=== PATIENT | female | born 1955 | race Caucasian/White ===

== ENCOUNTER 2018-05-01 12:29 | Inpatient (IN) ==
--- NOTE | 2018-05-01 13:54 | ED ---
HPI General Chief Complaint: Abdominal Pain Stated Complaint: Abd pain Time Seen by Provider: 05/01/18 13:39 History of Present Illness HPI narrative: The patient was seen and examined in the presence of the nurse. She complains of abdominal pain. Duration is 2 days. Severity is moderate. Location is diffuse in all 4 quadrants. She has nausea. She has been feeling constipated. No history of abdominal problems or surgeries. No alleviating factors. No exacerbating factors. Related Data Home Medications Medication Instructions Recorded Confirmed allopurinol 200 mg PO DAILY 05/01/18 05/01/18 clonazepam 1 mg PO BID 05/01/18 05/01/18 escitalopram oxalate 10 mg PO DAILY 05/01/18 05/01/18 hydrochlorothiazide 12.5 mg PO DAILY 05/01/18 05/01/18 hydrocodone bitartrate 05/01/18 hydroxychloroquine 200 mg PO DAILY 05/01/18 05/01/18 losartan 50 mg PO DAILY 05/01/18 05/01/18 warfarin 6 mg PO DAILY 05/01/18 05/01/18 Allergies Allergy/AdvReac Type Severity Reaction Status Date / Time penicillin G Allergy Severe Unverified 03/30/17 20:49 Sulfa (Sulfonamide Allergy Severe Unverified 03/30/17 20:49 Antibiotics) acebutolol AdvReac Severe UNABLE TO Unverified 03/30/17 20:49 FUNCTION/ WALK/ DIZZY atenolol AdvReac Severe UNABLE TO Unverified 03/30/17 20:49 FUNCTION/ WALK/ DIZZY betaxolol AdvReac Severe UNABLE TO Unverified 03/30/17 20:49 FUNCTION/ WALK/ DIZZY carvedilol AdvReac Severe UNABLE TO Unverified 03/30/17 20:49 FUNCTION/ WALK/ DIZZY labetalol AdvReac Severe UNABLE TO Unverified 03/30/17 20:49 FUNCTION/ WALK/ DIZZY metoprolol AdvReac Severe UNABLE TO Unverified 03/30/17 20:49 FUNCTION/ WALK/ DIZZY nebivolol AdvReac Severe UNABLE TO Unverified 03/30/17 20:49 FUNCTION/ WALK/ DIZZY pindolol AdvReac Severe UNABLE TO Unverified 03/30/17 20:49 FUNCTION/ WALK/ DIZZY propranolol AdvReac Severe UNABLE TO Unverified 03/30/17 20:49 FUNCTION/ WALK/ DIZZY sotalol AdvReac Severe UNABLE TO Unverified 03/30/17 20:49 FUNCTION/ WALK/ DIZZY timolol AdvReac Severe UNABLE TO Unverified 03/30/17 20:49 FUNCTION/ WALK/ DIZZY doxycycline AdvReac Mild N/V/D Unverified 03/30/17 20:49 minocycline AdvReac Mild N/V/D Unverified 03/30/17 20:49 tigecycline AdvReac Mild N/V/D Unverified 03/30/17 20:49 Review of Systems ROS: all other systems reviewed are negative PMFSH Medical History Medical History Depression (Acute) Gout (Acute) HTN (hypertension) with goal to be determined (Acute) Panic attack (Acute) Stroke (Acute) Social History Social History Smoking Status: Never smoker How Often Do You Have a Drink Containing Alcohol: Never Recent Travel in [facility] within the Last 8 Weeks: No Recent Out of Country Travel within the Last 8 Weeks: No Immunization History Tetanus Immunization: Unsure Hx Influenza Vaccine This Season: No Exam Narrative Exam Narrative: GENERAL: Well-nourished, well-developed patient with abdominal pain . SKIN: Focused skin assessment reveals no rash and nodules. Skin is Warm and dry. HEAD: Atraumatic. Normocephalic. EYES: Pupils equal and round. No scleral icterus. No injection or drainage. ENT: No nasal bleeding or discharge. Mucous membranes pink and moist. NECK: Trachea midline. No JVD. CARDIOVASCULAR: Regular rate and rhythm. No murmur appreciated. RESPIRATORY: No accessory muscle use. Clear to auscultation. Breath sounds equal bilaterally. GASTROINTESTINAL: Abdomen soft, diffuse tenderness in all 4 quadrants without rebound or guarding , nondistended. Hepatic and splenic margins not palpable. MUSCULOSKELETAL: No obvious deformities. No clubbing. No cyanosis. No edema. NEUROLOGICAL: Awake and alert. No obvious cranial nerve deficits. Motor grossly within normal limits. Normal speech. PSYCHIATRIC: Appropriate mood and affect; insight and judgment normal. Course Initial Documented Vital Signs Temperature 97.7 F 05/01/18 12:39 Pulse Rate 109 H 05/01/18 12:39 Respiratory Rate 12 05/01/18 12:39 Blood Pressure 136/73 05/01/18 12:39 Pulse Oximetry 93 L 05/01/18 12:39 Last Documented Vital Signs Temperature 97.7 F 05/01/18 12:39 Pulse Rate 111 H 05/01/18 18:25 Respiratory Rate 17 05/01/18 18:25 Blood Pressure 132/76 05/01/18 18:25 Pulse Oximetry 94 L 05/01/18 18:25 Medical Decision Making MDM Narrative Medical decision making narrative: IV placed and labs sent. CT ordered. I gave her Zofran dose. Patient has significant leukocytosis. Metabolic studies are reasonably normal. CT scan shows a very large pelvic mass. Is worrisome for an ovarian or uterine cancer. Patient is having a lot of pain and tachycardic and borderline hypoxic. I added a chest x-ray. I am going to give her some pain medicine. I have reviewed the case in detail with Dr. Burk who will admit and assist with workup. Medical Screen Exam Complete: Yes Emergency Medical Condition: Yes Differential Diagnosis Differential Diagnosis: Colitis, obstruction, ileus Medical Records Medical records reviewed: Yes I reviewed the patient's medical records. Lab Data Lab results reviewed: Yes I reviewed the patient's lab results. Result diagrams: 05/01/18 14:00 05/01/18 14:00 Lab Results 05/01/18 05/01/18 05/01/18 Range/Units 14:00 14:00 15:10 WBC 22.0 H (4.0-11.0) th/mm3 RBC 4.73 (4.00-5.30) mil/mm3 Hgb 13.0 (11.6-15.3) gm/dL Hct 38.9 (35.0-46.0) % MCV 82.3 (80.0-100.0) fL MCH 27.4 (27.0-34.0) pg MCHC 33.4 (32.0-36.0) % RDW 15.2 (11.6-17.2) % Plt Count 259 (150-450) th/mm3 MPV 8.0 (7.0-11.0) fL Prelim Diff (Auto) Slide review pending Neut % (Auto) 79.6 H (16.0-70.0) % Lymph % (Auto) 3.6 L (9.0-44.0) % [place] % (Auto) 16.6 H (0.0-8.0) % Eos % (Auto) 0.0 (0.0-4.0) % Baso % (Auto) 0.2 (0.0-2.0) % Neut # (Auto) 17.5 H (1.8-7.7) th/mm3 Lymph # (Auto) 0.8 L (1.0-4.8) th/mm3 [place] # (Auto) 3.6 H (0.0-0.9) th/mm3 Eos # (Auto) 0.0 (0.0-0.4) th/mm3 Baso # (Auto) 0.0 (0.0-0.2) th/mm3 WBC Differential Manual diff final Seg Neuts % (Manual) 62 (16-70) % Band Neuts % (Manual) 11 H (0-6) % Lymphocytes % (Manual) 5 L (9-44) % Monocytes % (Manual) 21 H (0-8) % Basophils % (Manual) 1 (0-2) % Abs Neuts (Manual) 16.1 H (1.8-7.7) th/mm3 Differential Comment . Platelet Estimate Normal (Normal) Platelet Morphology Normal (Normal) Sodium 136 (136-145) meq/L Potassium 3.9 (3.5-5.1) meq/L Chloride 101 (98-107) meq/L Carbon Dioxide 23.3 (21.0-32.0) meq/L Anion Gap 12 (5-15) meq/L BUN 12 (7-18) mg/dL Creatinine 1.18 H (0.50-1.00) mg/dL Estimated GFR 46 L (>89) mL/min Random Glucose 140 H (74-106) mg/dL Calcium 8.9 (8.5-10.1) mg/dL Total Bilirubin 1.4 H (0.2-1.0) mg/dL AST 12 L (15-37) U/L ALT 12 (10-53) U/L Alkaline Phosphatase 84 (45-117) U/L Total Protein 7.6 (6.4-8.2) g/dL Albumin 3.5 (3.4-5.0) g/dL Lipase 57 L (73-393) U/L Urine Color Yellow (Yellw/Straw) Urine Clarity Hazy H (Clear) Urine pH 5.0 (5.0-8.5) Ur Specific [place] 1.023 (1.002-1.035) Urine Protein Negative (Neg-Trace) mg/dL Urine Glucose (UA) Negative (Negative) mg/dL Urine Ketones Negative (Negative) mg/dL Urine Occult Blood Small H (Negative) Urine Nitrate Negative (Negative) Urine Bilirubin Negative (Negative) Urine Urobilinogen 2.0 H (Less than 2) mg/dL Ur Leukocyte Esterase Negative (Negative) Urine RBC 5 H (0-3) /hpf Urine WBC 2 (0-5) /hpf Ur Squamous Epith Cells 2 (0-5) /hpf Urine Mucus Few H (Occasional) /lpf Micro UA Comment Culture not ind Ur Microscopic Review Not Reportable Urine Culture Comments Culture not ind Imaging Data Attestation: I personally reviewed and interpreted this imaging study as follows : Radiologist's impression: Abdomen/Pelvis CT 05/01/18 13:48 CONCLUSION: 1. Large complex cystic and solid mass involving the pelvis. Chief concern is ovarian cancer. No appreciable pelvic adenopathy. 2. Cholelithiasis. 3. 1.6 cm hepatic cyst. This is simple in appearance. Discharge Plan Discharge Disposition Patient Disposition: 30 Still Patient Discharge Details Diagnosis: Abdominal pain, Abdominal or pelvic swelling, mass, or lump, right lower quadrant Physicians Team ED Provider: Tyrell Allred Primary Care Provider: Samson Huitron Rxs /Orders / Referrals /Forms Prescriptions: No Action losartan 50 mg Tablet 50 mg PO DAILY RF: 0 clonazepam 1 mg Tablet 1 mg PO BID RF: 0 allopurinol 100 mg Tablet 200 mg PO DAILY RF: 0 warfarin 6 mg Tablet 6 mg PO DAILY RF: 0 hydrochlorothiazide 12.5 mg Capsule 12.5 mg PO DAILY RF: 0 hydroxychloroquine 200 mg Tablet 200 mg PO DAILY RF: 0 escitalopram oxalate 10 mg Tablet 10 mg PO DAILY RF: 0 hydrocodone bitartrate RF: 0 Discharge Interventions Interventions: Vital Signs Last Done: 05/01/18 18:25 Status ED Status: Admitted Patient
[2018-05-01 14:19] LABS: Baso % (Auto) 0.2 % (0.0-2.0); Hematocrit 38.9 % (35.0-46.0); Lymph # (Auto) 0.8 th/mm3 (1.0-4.8); Lymph % (Auto) 3.6 % (9.0-44.0); Mean Corpuscular HGB Conc 33.4 % (32.0-36.0); Mean Corpuscular Hemoglobin 27.4 pg (27.0-34.0); Mean Corpuscular Volume 82.3 fL (80.0-100.0); Mono # (Auto) 3.6 th/mm3 (0.0-0.9); Mono % (Auto) 16.6 % (0.0-8.0); Neut # (Auto) 17.5 th/mm3 (1.8-7.7); Neut % (Auto) 79.6 % (16.0-70.0); Platelet Count 259 th/mm3 (150-450); Red Blood Count 4.73 mil/mm3 (4.00-5.30); Red Cell Distribution Width 15.2 % (11.6-17.2)
[2018-05-01 14:48] LABS: Alanine Aminotransferase 12 U/L (10-53); Albumin 3.5 g/dL (3.4-5.0); Anion Gap 12 meq/L (5-15); Aspartate Aminotransferase 12 U/L (15-37); Blood Urea Nitrogen 12 mg/dL (7-18); Calcium 8.9 mg/dL (8.5-10.1); Carbon Dioxide 23.3 meq/L (21.0-32.0); Chloride 101 meq/L (98-107); Glomerular Filtration Rate 46 mL/min (>89); Glucose,Random 140 mg/dL (74-106); Lipase 57 U/L (73-393); Potassium 3.9 meq/L (3.5-5.1); Sodium 136 meq/L (136-145)
[2018-05-01 14:50] LABS: Alkaline Phosphatase 84 U/L (45-117); Total Protein 7.6 g/dL (6.4-8.2)
[2018-05-01 15:32] LABS: Lymphocytes 5 % (9-44); Monocytes 21 % (0-8)
[2018-05-01 15:34] LABS: Platelet Estimate Normal (Normal); Platelet Morphology Normal (Normal)
[2018-05-01 15:48] LABS: Bilirubin,Urine Negative (Negative); Clarity,Urine Hazy (Clear); Color,Urine Yellow (Yellw/Straw); Glucose,Urine (UA) Negative (Negative); Leukocyte Esterase,Urine Negative (Negative); Mucus,Urine Few /lpf (Occasional); Nitrite,Urine Negative (Negative); Specific Gravity,Urine 1.023 (1.002-1.035); Squamous Epithelial Cell,Urine 2 /hpf (0-5)
[2018-05-01] MEDS ORDERED: Morphine Inj 4 MG/ML Vial IV.PUSH ONE (18:24)
[2018-05-01] MEDS ORDERED: Bisacodyl 10 MG Supp RECTAL PRN (19:13)
[2018-05-01] MEDS ORDERED: Acetaminophen 325 MG Tablet PO PRN (19:13)
[2018-05-01] MEDS ORDERED: Temazepam 15 MG Capsule PO PRN (19:13)
[2018-05-01] MEDS ORDERED: Naloxone Inj 0.4 MG/ML Vial IV.PUSH PRN (19:13)
[2018-05-01] MEDS ORDERED: Enoxaparin Inj 40 MG/0.4 ML Syringe SQ SCH (19:15)
[2018-05-01] MEDS: Morphine Inj 4 MG/ML Vial IV.PUSH PRN (21:56)
[2018-05-01] MEDS: Senna/Docusate Sodium 8.6/50 MG Tablet PO SCH (22:19)
[2018-05-02] MEDS: Morphine Inj 4 MG/ML Vial IV.PUSH PRN ×2 (04:40→08:09)
[2018-05-02] MEDS: Senna/Docusate Sodium 8.6/50 MG Tablet PO SCH ×2 (08:48→20:18)
[2018-05-02] MEDS ORDERED: Chlorhexidine Gluconate 2% 1 Pack (2 Cloths) TOPICAL ONE (09:15)
[2018-05-02] MEDS ORDERED: Metoprolol Tartrate 25 MG Tablet PO ONE (09:15)
[2018-05-02] MEDS ORDERED: Sodium Chlor 0.9% Inj 500 ML IV.SIG SCH (10:00)
[2018-05-02 12:27] LABS: Baso # (Auto) 0.1 th/mm3 (0.0-0.2); Baso % (Auto) 0.2 % (0.0-2.0); Hematocrit 36.7 % (35.0-46.0); Hemoglobin 12.2 gm/dL (11.6-15.3); Lymph # (Auto) 1.2 th/mm3 (1.0-4.8); Lymph % (Auto) 4.5 % (9.0-44.0); Mean Corpuscular HGB Conc 33.3 % (32.0-36.0); Mean Corpuscular Hemoglobin 27.5 pg (27.0-34.0); Mean Corpuscular Volume 82.6 fL (80.0-100.0); Mono # (Auto) 4.5 th/mm3 (0.0-0.9); Mono % (Auto) 16.4 % (0.0-8.0); Neut # (Auto) 21.6 th/mm3 (1.8-7.7); Neut % (Auto) 78.9 % (16.0-70.0); Platelet Count 293 th/mm3 (150-450); Red Blood Count 4.44 mil/mm3 (4.00-5.30); Red Cell Distribution Width 15.7 % (11.6-17.2); White Blood Count 27.4 th/mm3 (4.0-11.0)
[2018-05-02 12:31] LABS: INR 3.5 Ratio; Prothrombin Time 35.5 sec (9.8-11.6)
[2018-05-02 12:54] LABS: Albumin 3.5 g/dL (3.4-5.0); Anion Gap 11 meq/L (5-15); Aspartate Aminotransferase 13 U/L (15-37); Blood Urea Nitrogen 26 mg/dL (7-18); Calcium 9.3 mg/dL (8.5-10.1); Carbon Dioxide 22.8 meq/L (21.0-32.0); Chloride 101 meq/L (98-107); Glomerular Filtration Rate 28 mL/min (>89); Glucose,Random 140 mg/dL (74-106); Potassium 4.1 meq/L (3.5-5.1); Sodium 135 meq/L (136-145)
[2018-05-02 12:56] LABS: Alanine Aminotransferase 14 U/L (10-53); Alkaline Phosphatase 88 U/L (45-117)
[2018-05-02 13:25] LABS: Lymphocytes 3 % (9-44); Monocytes 15 % (0-8)
[2018-05-02 13:26] LABS: Platelet Estimate Normal (Normal); Platelet Morphology Normal (Normal)
[2018-05-02] MEDS: Sod Chloride 0.9% Inj 1,000 ML IV.CONT SCH (15:46)
--- NOTE | 2018-05-02 19:21 | ECG ---
Date Performed: 05/02/2018 Time Performed: 09:20:24 PTAGE: 62 years EKG: Sinus rhythm WITH OCCASIONAL SUPRAVENTRICULAR PREMATURE COMPLEXES LOW QRS VOLTAGE IN PRECORDIAL LEADS POSSIBLE RI GHT VENTRICULAR CONDUCTION DELAY POSSIBLE ANTERIOR MYOCARDIAL INFARCTION , OF INDETERMINATE AGE ABNOR MAL ECG PREVIOUS TRACING : 01/09/2009 00.49 Since the previous tracing, no significant change noted DOCTOR: Addie Headley Interpretating Date/Time 05/02/2018 19:19:36
[2018-05-02] MEDS: clonazePAM 1 MG Tablet PO SCH (20:18)
[2018-05-03] MEDS: Sod Chloride 0.9% Inj 1,000 ML IV.CONT SCH ×3 (02:19→15:50)
[2018-05-03] MEDS: Morphine Inj 4 MG/ML Vial IV.PUSH PRN (05:22)
[2018-05-03 05:51] LABS: Baso % (Auto) 0.2 % (0.0-2.0); Eos % (Auto) 0.1 % (0.0-4.0); Hematocrit 32.1 % (35.0-46.0); Hemoglobin 10.7 gm/dL (11.6-15.3); Lymph # (Auto) 0.8 th/mm3 (1.0-4.8); Lymph % (Auto) 4.8 % (9.0-44.0); Mean Corpuscular HGB Conc 33.3 % (32.0-36.0); Mean Corpuscular Hemoglobin 27.5 pg (27.0-34.0); Mean Corpuscular Volume 82.7 fL (80.0-100.0); Mono # (Auto) 2.7 th/mm3 (0.0-0.9); Mono % (Auto) 15.4 % (0.0-8.0); Neut % (Auto) 79.5 % (16.0-70.0); Platelet Count 244 th/mm3 (150-450); Red Blood Count 3.89 mil/mm3 (4.00-5.30); Red Cell Distribution Width 15.7 % (11.6-17.2); White Blood Count 17.6 th/mm3 (4.0-11.0)
[2018-05-03 05:52] LABS: INR 3.3 Ratio; Prothrombin Time 32.9 sec (9.8-11.6)
[2018-05-03 06:19] LABS: Alanine Aminotransferase 9 U/L (10-53); Albumin 2.9 g/dL (3.4-5.0); Alkaline Phosphatase 86 U/L (45-117); Anion Gap 9 meq/L (5-15); Aspartate Aminotransferase 11 U/L (15-37); Blood Urea Nitrogen 30 mg/dL (7-18); Calcium 8.9 mg/dL (8.5-10.1); Carbon Dioxide 23.8 meq/L (21.0-32.0); Carcinoembryonic Antigen 4.4 ng/mL (0.2-5.0); Chloride 103 meq/L (98-107); Glomerular Filtration Rate 43 mL/min (>89); Glucose,Random 137 mg/dL (74-106); Potassium 3.8 meq/L (3.5-5.1); Sodium 136 meq/L (136-145); Total Protein 6.4 g/dL (6.4-8.2)
[2018-05-03 06:52] LABS: Cancer Antigen 125 69.1 U/mL (0.0-30.2); Cancer Antigen 19-9 34.6 U/mL (0.0-35.0)
[2018-05-03 08:36] LABS: Lymphocytes 2 % (9-44); Monocytes 13 % (0-8); Myelocytes 1 % (0-0)
[2018-05-03 08:37] LABS: Platelet Estimate Normal (Normal); Platelet Morphology Normal (Normal)
[2018-05-03] MEDS: Senna/Docusate Sodium 8.6/50 MG Tablet PO SCH ×2 (09:12→20:18)
[2018-05-03] MEDS: Escitalopram 10 MG Tablet PO SCH (09:13)
[2018-05-03] MEDS: Allopurinol 100 MG Tablet PO SCH (09:13)
[2018-05-03] MEDS: Hydroxychloroquine 200 MG Tablet PO SCH (09:13)
[2018-05-03] MEDS: clonazePAM 1 MG Tablet PO SCH (20:18)
[2018-05-04] MEDS: Sod Chloride 0.9% Inj 1,000 ML IV.CONT SCH ×2 (01:31→15:52)
[2018-05-04 06:50] LABS: Baso % (Auto) 0.2 % (0.0-2.0); Eos # (Auto) 0.2 th/mm3 (0.0-0.4); Eos % (Auto) 1.2 % (0.0-4.0); Hematocrit 30.6 % (35.0-46.0); Hemoglobin 10.3 gm/dL (11.6-15.3); Lymph % (Auto) 6.1 % (9.0-44.0); Mean Corpuscular HGB Conc 33.7 % (32.0-36.0); Mean Corpuscular Hemoglobin 27.5 pg (27.0-34.0); Mean Corpuscular Volume 81.8 fL (80.0-100.0); Mean Platelet Volume 8.5 fL (7.0-11.0); Mono # (Auto) 2.6 th/mm3 (0.0-0.9); Mono % (Auto) 15.3 % (0.0-8.0); Neut % (Auto) 77.2 % (16.0-70.0); Platelet Count 295 th/mm3 (150-450); Red Blood Count 3.74 mil/mm3 (4.00-5.30); Red Cell Distribution Width 15.8 % (11.6-17.2); White Blood Count 16.9 th/mm3 (4.0-11.0)
[2018-05-04 06:52] LABS: INR 2.4 Ratio; Prothrombin Time 24.3 sec (9.8-11.6)
[2018-05-04 07:04] LABS: Calcium 9.6 mg/dL (8.5-10.1); Carbon Dioxide 25.6 meq/L (21.0-32.0); Potassium 3.9 meq/L (3.5-5.1)
[2018-05-04] MEDS: Senna/Docusate Sodium 8.6/50 MG Tablet PO SCH ×4 (07:41→20:36)
[2018-05-04] MEDS: Hydroxychloroquine 200 MG Tablet PO SCH ×2 (07:41→11:51)
[2018-05-04] MEDS: Escitalopram 10 MG Tablet PO SCH ×2 (07:41→11:51)
[2018-05-04] MEDS: Allopurinol 100 MG Tablet PO SCH ×2 (07:42→11:52)
[2018-05-04 08:07] LABS: Eosinophils 1 % (0-4); Lymphocytes 4 % (9-44); Metamyelocytes 1 % (0-1); Monocytes 7 % (0-8); Myelocytes 2 % (0-0); Platelet Estimate Normal (Normal); Platelet Morphology Normal (Normal)
[2018-05-04] MEDS: clonazePAM 1 MG Tablet PO SCH (20:33)
[2018-05-05 04:54] LABS: INR 1.6 Ratio; Prothrombin Time 15.9 sec (9.8-11.6)
[2018-05-05 05:03] LABS: Baso # (Auto) 0.1 th/mm3 (0.0-0.2); Baso % (Auto) 0.3 % (0.0-2.0); Eos # (Auto) 0.2 th/mm3 (0.0-0.4); Eos % (Auto) 1.5 % (0.0-4.0); Hematocrit 30.5 % (35.0-46.0); Lymph # (Auto) 1.1 th/mm3 (1.0-4.8); Lymph % (Auto) 6.3 % (9.0-44.0); Mean Corpuscular HGB Conc 32.7 % (32.0-36.0); Mean Corpuscular Hemoglobin 27.1 pg (27.0-34.0); Mean Corpuscular Volume 82.6 fL (80.0-100.0); Mean Platelet Volume 7.9 fL (7.0-11.0); Mono # (Auto) 2.6 th/mm3 (0.0-0.9); Mono % (Auto) 15.6 % (0.0-8.0); Neut # (Auto) 12.7 th/mm3 (1.8-7.7); Neut % (Auto) 76.3 % (16.0-70.0); Platelet Count 353 th/mm3 (150-450); Red Blood Count 3.69 mil/mm3 (4.00-5.30); Red Cell Distribution Width 15.1 % (11.6-17.2); White Blood Count 16.7 th/mm3 (4.0-11.0)
[2018-05-05 05:22] LABS: Calcium 9.3 mg/dL (8.5-10.1); Carbon Dioxide 28.1 meq/L (21.0-32.0); Potassium 3.9 meq/L (3.5-5.1)
[2018-05-05 07:58] LABS: Eosinophils 1 % (0-4); Lymphocytes 7 % (9-44); Metamyelocytes 3 % (0-1); Monocytes 9 % (0-8); Myelocytes 1 % (0-0); Platelet Estimate Normal (Normal); Platelet Morphology Normal (Normal)
[2018-05-05] MEDS: Hydroxychloroquine 200 MG Tablet PO SCH (08:22)
[2018-05-05] MEDS: Escitalopram 10 MG Tablet PO SCH (08:22)
[2018-05-05] MEDS: Allopurinol 100 MG Tablet PO SCH (08:22)
[2018-05-05] MEDS: Senna/Docusate Sodium 8.6/50 MG Tablet PO SCH ×2 (08:24→22:46)
[2018-05-05] MEDS: Levofloxacin 500 mg Premix Inj 500 MG/100 ML PIGGYBACK IV.SIG SCH (14:54)
[2018-05-05] MEDS: clonazePAM 1 MG Tablet PO SCH (22:46)
[2018-05-06 06:58] LABS: INR 1.6 Ratio; Prothrombin Time 16.3 sec (9.8-11.6)
[2018-05-06 07:03] LABS: Baso % (Auto) 0.3 % (0.0-2.0); Eos # (Auto) 0.4 th/mm3 (0.0-0.4); Eos % (Auto) 2.1 % (0.0-4.0); Hematocrit 27.3 % (35.0-46.0); Hemoglobin 9.4 gm/dL (11.6-15.3); Lymph # (Auto) 1.1 th/mm3 (1.0-4.8); Lymph % (Auto) 6.2 % (9.0-44.0); Mean Corpuscular HGB Conc 34.3 % (32.0-36.0); Mean Corpuscular Hemoglobin 27.7 pg (27.0-34.0); Mean Corpuscular Volume 80.9 fL (80.0-100.0); Mean Platelet Volume 7.8 fL (7.0-11.0); Mono # (Auto) 2.4 th/mm3 (0.0-0.9); Mono % (Auto) 14.2 % (0.0-8.0); Neut # (Auto) 13.1 th/mm3 (1.8-7.7); Neut % (Auto) 77.2 % (16.0-70.0); Platelet Count 354 th/mm3 (150-450); Red Blood Count 3.37 mil/mm3 (4.00-5.30); Red Cell Distribution Width 15.3 % (11.6-17.2)
[2018-05-06 07:22] LABS: Calcium 8.5 mg/dL (8.5-10.1); Carbon Dioxide 25.9 meq/L (21.0-32.0); Potassium 3.8 meq/L (3.5-5.1)
[2018-05-06] MEDS: Hydroxychloroquine 200 MG Tablet PO SCH (08:02)
[2018-05-06] MEDS: Senna/Docusate Sodium 8.6/50 MG Tablet PO SCH ×2 (08:02→21:33)
[2018-05-06] MEDS: Allopurinol 100 MG Tablet PO SCH (08:02)
[2018-05-06] MEDS: Escitalopram 10 MG Tablet PO SCH (08:02)
[2018-05-06 09:49] LABS: Eosinophils 4 % (0-4); Lymphocytes 7 % (9-44); Metamyelocytes 5 % (0-1); Monocytes 11 % (0-8); Platelet Estimate Normal (Normal); Platelet Morphology Normal (Normal); Promyelocyte 1 % (0-0); RBC Morphology Normal (Normal)
[2018-05-06] MEDS ORDERED: Enoxaparin Inj 40 MG/0.4 ML Syringe SQ ONE (11:00)
[2018-05-06] MEDS: Levofloxacin 500 mg Premix Inj 500 MG/100 ML PIGGYBACK IV.SIG SCH (15:00)
[2018-05-06] MEDS: clonazePAM 1 MG Tablet PO SCH (21:34)
[2018-05-07 06:45] LABS: Baso # (Auto) 0.1 th/mm3 (0.0-0.2); Baso % (Auto) 0.4 % (0.0-2.0); Eos # (Auto) 0.3 th/mm3 (0.0-0.4); Eos % (Auto) 1.8 % (0.0-4.0); Hematocrit 28.7 % (35.0-46.0); Hemoglobin 9.6 gm/dL (11.6-15.3); Lymph % (Auto) 6.8 % (9.0-44.0); Mean Corpuscular HGB Conc 33.4 % (32.0-36.0); Mean Corpuscular Hemoglobin 27.4 pg (27.0-34.0); Mono # (Auto) 1.7 th/mm3 (0.0-0.9); Mono % (Auto) 11.6 % (0.0-8.0); Neut # (Auto) 11.7 th/mm3 (1.8-7.7); Neut % (Auto) 79.4 % (16.0-70.0); Platelet Count 371 th/mm3 (150-450); Red Cell Distribution Width 15.4 % (11.6-17.2); White Blood Count 14.8 th/mm3 (4.0-11.0)
[2018-05-07 06:57] LABS: INR 1.9 Ratio; Prothrombin Time 19.5 sec (9.8-11.6)
[2018-05-07 08:48] LABS: Lymphocytes 8 % (9-44); Metamyelocytes 11 % (0-1); Monocytes 9 % (0-8); Myelocytes 11 % (0-0); Platelet Estimate Normal (Normal); Platelet Morphology Normal (Normal)
[2018-05-07] MEDS: Senna/Docusate Sodium 8.6/50 MG Tablet PO SCH ×2 (09:31→20:10)
[2018-05-07] MEDS: Hydroxychloroquine 200 MG Tablet PO SCH (09:31)
[2018-05-07] MEDS: Escitalopram 10 MG Tablet PO SCH (09:31)
[2018-05-07] MEDS: Allopurinol 100 MG Tablet PO SCH (09:31)
[2018-05-07] MEDS: Levofloxacin 500 mg Premix Inj 500 MG/100 ML PIGGYBACK IV.SIG SCH (13:34)
[2018-05-07] MEDS: clonazePAM 1 MG Tablet PO SCH (20:10)
[2018-05-08 05:52] LABS: Baso # (Auto) 0.1 th/mm3 (0.0-0.2); Baso % (Auto) 0.7 % (0.0-2.0); Eos # (Auto) 0.2 th/mm3 (0.0-0.4); Eos % (Auto) 1.7 % (0.0-4.0); Hematocrit 28.1 % (35.0-46.0); Hemoglobin 9.3 gm/dL (11.6-15.3); Lymph % (Auto) 8.5 % (9.0-44.0); Mean Corpuscular HGB Conc 33.2 % (32.0-36.0); Mean Corpuscular Hemoglobin 27.6 pg (27.0-34.0); Mono # (Auto) 1.6 th/mm3 (0.0-0.9); Mono % (Auto) 13.7 % (0.0-8.0); Neut % (Auto) 75.4 % (16.0-70.0); Platelet Count 381 th/mm3 (150-450); Red Blood Count 3.38 mil/mm3 (4.00-5.30); Red Cell Distribution Width 15.4 % (11.6-17.2); White Blood Count 11.9 th/mm3 (4.0-11.0)
[2018-05-08 06:04] LABS: INR 2.2 Ratio; Prothrombin Time 22.7 sec (9.8-11.6)
[2018-05-08 08:30] LABS: Eosinophils 2 % (0-4); Lymphocytes 7 % (9-44); Metamyelocytes 5 % (0-1); Monocytes 13 % (0-8); Myelocytes 1 % (0-0); Plasma Cells 1 % (0-0)
[2018-05-08 08:31] LABS: Platelet Estimate Normal (Normal); Platelet Morphology Normal (Normal)
[2018-05-08] MEDS: Escitalopram 10 MG Tablet PO SCH (08:50)
[2018-05-08] MEDS: Allopurinol 100 MG Tablet PO SCH (08:50)
[2018-05-08] MEDS: Senna/Docusate Sodium 8.6/50 MG Tablet PO SCH (08:51)
[2018-05-08] MEDS: Hydroxychloroquine 200 MG Tablet PO SCH (08:51)
[2018-05-08] MEDS: Levofloxacin 500 mg Premix Inj 500 MG/100 ML PIGGYBACK IV.SIG SCH (16:48)
== END 2018-05-08 15:35 ==
LOC: NEPC 12:29 → NEDA 18:36 → N06 19:29
PROVIDERS: ADMIT Hospitalist; ATTEND Hospitalist

== ENCOUNTER 2018-06-02 05:23 | Observation (INO) ==
[2018-06-02] MEDS ORDERED: Chlorhexidine Gluconate 2% 1 Pack (2 Cloths) TOPICAL ONE (05:40)
[2018-06-02] MEDS ORDERED: Heparin - SQ 10,000 UNITS/ML Vial SQ PRN (05:42)
[2018-06-02] MEDS ORDERED: Levofloxacin 500 mg Premix Inj 500 MG/100 ML PIGGYBACK IV.SIG PRN (05:44)
[2018-06-02] MEDS ORDERED: Sodium Chlor 0.9% Inj 500 ML IV.SIG SCH (06:00)
[2018-06-02] MEDS ORDERED: Sugammadex Inj 200 MG/2 ML Vial IV.PUSH ONE (06:26)
[2018-06-02] MEDS ORDERED: Famotidine PF Inj 20 MG/2 ML Vial ONE (07:07)
[2018-06-02] MEDS ORDERED: Phenylephrine/NS 1000 MCG/10ML Syringe IV.PUSH ONE (07:18)
[2018-06-02] MEDS ORDERED: Lidocaine PF 1% Inj 5 ML Syringe OTHER ONE (07:18)
[2018-06-02] MEDS ORDERED: Normosol-R pH 7.4 Inj 1,000 ML IV.CONT ONE (07:18)
[2018-06-02] MEDS ORDERED: Lidocaine 1%/Epinephrine 1:100,000 Inj 50 ML Vial ONE (07:59)
[2018-06-02] MEDS ORDERED: fentaNYL Citrate Inj 100 MCG/2 ML Ampul ONE (11:36)
[2018-06-02] MEDS ORDERED: Methylene Blue Inj 100 MG/10 ML Vial OTHER ONE ×2 (12:15→13:30)
[2018-06-02] MEDS ORDERED: LORazepam 0.5 MG Tablet PO PRN (13:36)
[2018-06-02] MEDS ORDERED: Acetaminophen 500 MG Tablet PO PRN (13:44)
[2018-06-02] MEDS ORDERED: *morphine SULFATE 10 MG/ML PERIprocedure ONLY ONE (14:06)
[2018-06-02] MEDS ORDERED: Morphine Inj 4 MG/ML Vial ONE (14:07)
[2018-06-02] MEDS ORDERED: KCL 20 mEq/D5W/NaCl 0.45% Inj 1,000 ML ONE (14:09)
[2018-06-02] MEDS: KCL 20 mEq/D5W/NaCl 0.45% Inj 1,000 ML IV.CONT SCH ×2 (14:10→23:47)
[2018-06-02] MEDS ORDERED: *morphine SULFATE 4 MG/ML PERIprocedure ONLY ONE (14:39)
[2018-06-02] MEDS ORDERED: *HYDROmorphone PF Inj 1 MG/ML Ampul PERIprocedural Use ONLY ONE (14:49)
--- NOTE | 2018-06-02 16:27 | P.PNONC ---
Subjective Interval history: post op note: patient resting in bed sleepy awakens to voice no complaints Objective Vital Signs/Intake & Output: Vital Signs 06/02/18 05:52 06/02/18 13:50 06/02/18 14:00 Temperature 97.8 F 97.6 F Pulse Rate 71 86 71 Respiratory Rate 20 24 17 Blood Pressure 134/92 H 142/77 H 124/72 Pulse Oximetry 96 92 L 95 06/02/18 14:15 06/02/18 14:30 06/02/18 14:45 Temperature Pulse Rate 74 73 78 Respiratory Rate 15 13 11 L Blood Pressure 120/75 131/71 125/74 Pulse Oximetry 93 L 92 L 94 L 06/02/18 15:00 06/02/18 15:25 Temperature 97.4 F L 96.8 F L Pulse Rate 75 76 Respiratory Rate 14 18 Blood Pressure 123/74 120/73 Pulse Oximetry 95 93 L Intake & Output 06/01/18 06/02/18 06/02/18 18:59 06:59 18:59 Intake Total 1800 / 1800 Output Total 800 / 800 Balance 1000 / 1000 Weight 90.4 kg Intake: Anesthesia Amount 1800 / 1800 Output: Estimated Blood Loss 300 / 300 Urine Amount (Catheter) 500 / 500 Indwelling Urethral Catheter 500 / 500 Other: Weight On Admission 90.4 kg Laboratory Results: Laboratory Results - last 24 hr 06/02/18 06:00 Blood Type B Positive Antibody Screen Positive H MTS Gel Crossmatch See Detail Bld Prod Order Comment Medications: Active Medications Generic Name Dose Route Start Last Admin Trade Name Freq PRN Reason Stop Dose Admin Heparin Sodium (Porcine) 5,000 units 06/02/18 05:42 06/02/18 06:18 Heparin Inj SQ 06/02/18 22:00 5,000 units READING ASSISTANT PRN Administration PRE-OP READING ASSISTANT TO OR Metronidazole/Sodium Chloride 100 mls @ 100 mls/hr 06/02/18 05:43 06/02/18 07 :18 Flagyl 500 Mg Inj IV.SIG 06/02/18 22:00 100 mls/hr READING ASSISTANT PRN Administration GIVE PRE-OP READING ASSISTANT TO OR Levofloxacin/Dextrose 500 mg in 100 mls @ 100 mls/hr 06/02/18 05:44 06/02/18 07:15 Levaquin 500 Mg Premix Inj IV.SIG 06/02/18 22:00 100 mls/hr READING ASSISTANT PRN Administration PRE-OP READING ASSISTANT TO OR Lactated Ringer's 1,000 mls @ 30 mls/hr 06/02/18 05:45 06/02/18 06:27 Lr 1000 Ml Inj IV.SIG 06/03/18 05:44 30 mls/hr .Q24H MI Administration Sodium Chloride 500 mls @ 30 mls/hr 06/02/18 06:00 06/02/18 06:27 Ns Inj IV.SIG Not Given .Q10H MI Potassium Chloride/Dextrose/Sod Cl 1,000 mls @ 100 mls/hr 06/02/18 13:45 14:10 D5w/1/2ns + Kcl 20 Meq Inj IV.CONT 100 mls/hr .Q10H MI Administration Objective Remarks: GENERAL: Well-nourished, well-developed patient. SKIN: Warm and dry. HEAD: Normocephalic. EYES: No scleral icterus. No injection or drainage. CARDIOVASCULAR: Regular rate and rhythm without murmurs. RESPIRATORY: No accessory muscle use. GASTROINTESTINAL: Abdomen soft, SS are c/d/i no drainage EXTREMITIES: No cyanosis, or edema. MUSCULOSKELETAL: Adequate muscle tone. NEUROLOGICAL: No obvious focal deficit. sleepy alert, and oriented x3. Assessment/Plan (1) Abdominal or pelvic swelling, mass, or lump, right lower quadrant Code(s): R19.03 - Right lower quadrant abdominal swelling, mass and lump Status: Acute - Plan s/p RA lap hyst with BSO and resection of large pelvic mass post op orders in chart OOB to chair ADAT Toradol and Percocet for pain anticipate discharge in the next 24 hours
[2018-06-02] MEDS: Ketorolac Inj 30 MG/ML (IVP) Vial IV.PUSH SCH ×2 (17:55→23:47)
[2018-06-03] MEDS: Ketorolac Inj 30 MG/ML (IVP) Vial IV.PUSH SCH ×4 (05:30→21:49)
--- NOTE | 2018-06-03 07:51 | P.PNONC ---
Subjective Interval history: POD #1 patient states had some pain last night mostly headache medication helped denies any n/v coughing up mucous, using IS [place] has been discontinued not urinated yet encourage fluids ok to discharge home after first void will give Heparin 5000 units X1 today and then OK to restart Coumadin tomorrow discussed with RN and patient Objective Vital Signs/Intake & Output: Vital Signs 06/02/18 13:50 06/02/18 14:00 06/02/18 14:15 Temperature 97.6 F Pulse Rate 86 71 74 Respiratory Rate 24 17 15 Blood Pressure 142/77 H 124/72 120/75 Pulse Oximetry 92 L 95 93 L 06/02/18 14:30 06/02/18 14:45 06/02/18 15:00 Temperature 97.4 F L Pulse Rate 73 78 75 Respiratory Rate 13 11 L 14 Blood Pressure 131/71 125/74 123/74 Pulse Oximetry 92 L 94 L 95 06/02/18 15:25 06/02/18 20:00 06/02/18 20:31 Temperature 96.8 F L 97.7 F Pulse Rate 76 82 Respiratory Rate 18 16 Blood Pressure 120/73 133/89 Pulse Oximetry 93 L 94 L 96 06/03/18 00:00 06/03/18 01:07 06/03/18 01:08 Temperature 98.6 F Pulse Rate 75 Respiratory Rate 16 16 16 Blood Pressure 138/90 Pulse Oximetry 92 L 06/03/18 04:00 Temperature 98.7 F Pulse Rate 74 Respiratory Rate 16 Blood Pressure 131/89 Pulse Oximetry 94 L Intake & Output 06/02/18 06/03/18 06/03/18 18:59 06:59 18:59 Intake Total 1999 / 1999 1240 / 1240 Output Total 800 / 800 600 / 600 Balance 1200 / 1200 640 / 640 Weight 89.7 kg Intake: IV 200 / 200 1000 / 1000 D5W/1/2NS + KCL 20 mEq Inj 1, 1000 / 1000 000 ML @ 100 mls/hr IV.CONT . Q10H [facility] Rx#:[id number] Levaquin 500 mg Premix Inj 500 100 / 100 mg In 100 ml @ 100 mls/hr IV. SIG CASH APPLICATIONS REPRESENTATIVE PRN Rx#:[id number] Flagyl 500 MG Inj 100 ML @ 100 100 / 100 mls/hr IV.SIG CASH APPLICATIONS REPRESENTATIVE PRN Rx#: [id number] Oral 240 / 240 Anesthesia Amount 1800 / 1800 Output: Urine 600 / 600 Estimated Blood Loss 300 / 300 Urine Amount (Catheter) 500 / 500 Indwelling Urethral Catheter 500 / 500 Medications: Active Medications Generic Name Dose Route Start Last Admin Trade Name Freq PRN Reason Stop Dose Admin Sodium Chloride 500 mls @ 30 mls/hr 06/02/18 06:00 06/02/18 06:27 Ns Inj IV.SIG Not Given .Q10H MI Potassium Chloride/Dextrose/Sod Cl 1,000 mls @ 100 mls/hr 06/02/18 13:45 23:47 D5w/1/2ns + Kcl 20 Meq Inj IV.CONT 100 mls/hr .Q10H MI Administration Ketorolac Tromethamine 15 mg 06/02/18 18:00 06/03/18 05:30 Toradol Inj IV.PUSH 06/03/18 12:01 15 mg Q6HR MI Administration Lorazepam 0.5 mg 06/02/18 13:36 06/03/18 02:09 Ativan PO 0.5 mg Q8H PRN Administration ANXIETY Ondansetron HCl 4 mg 06/02/18 13:36 06/02/18 23:48 Zofran Inj IV.PUSH 4 mg Q6H PRN Administration NAUSEA OR VOMITING Oxycodone/Acetaminophen 1 tab 06/02/18 13:36 06/02/18 23:49 Percocet 5/325 Mg PO 1 tab Q4H PRN Administration PAIN SCALE 1 TO 5 Oxycodone/Acetaminophen 2 tab 06/02/18 13:36 06/03/18 05:29 Percocet 5/325 Mg PO 2 tab Q4H PRN Administration PAIN SCALE 6 TO 10 Sodium Chloride 2 ml 06/02/18 21:00 06/02/18 20:34 Ns Flush IV.FLUSH Not Given BID MI Objective Remarks: GENERAL: Well-nourished, well-developed patient. SKIN: Warm and dry. HEAD: Normocephalic. EYES: No scleral icterus. No injection or drainage. CARDIOVASCULAR: Regular rate and rhythm RESPIRATORY: No accessory muscle use. GASTROINTESTINAL: Abdomen soft, SS are c/d/i EXTREMITIES: teds and scds MUSCULOSKELETAL: Adequate muscle tone. NEUROLOGICAL: No obvious focal deficit. Awake, alert, and oriented x3. PSYCHIATRIC: Appropriate mood and affect; insight and judgment normal. Assessment/Plan (1) Abdominal or pelvic swelling, mass, or lump, right lower quadrant Code(s): R19.03 - Right lower quadrant abdominal swelling, mass and lump Status: Acute - Plan s/p RA lap hyst with BSO and resection of large pelvic mass post op orders in chart OOB to chair ADAT Toradol and Percocet for pain anticipate discharge in the next 24 hours 06/03/18 ok to discharge home today once labs have been resulted and after first void ok to restart home meds, will restart Coumadin tomorrow as prescribed Percocet for pain educated patient about possible constipation r/t narcotics will follow up in office after 2 weeks for post op visit restrictions reviewed - Attending Statement discussed with Dr. Maldonado and he is in agreement
[2018-06-03 08:14] LABS: Baso % (Auto) 0.2 % (0.0-2.0); Eos % (Auto) 0.3 % (0.0-4.0); Hemoglobin 10.3 gm/dL (11.6-15.3); Lymph # (Auto) 0.6 th/mm3 (1.0-4.8); Lymph % (Auto) 8.6 % (9.0-44.0); Mean Corpuscular HGB Conc 33.4 % (32.0-36.0); Mean Corpuscular Hemoglobin 27.1 pg (27.0-34.0); Mean Corpuscular Volume 81.3 fL (80.0-100.0); Mean Platelet Volume 7.7 fL (7.0-11.0); Mono % (Auto) 14.3 % (0.0-8.0); Neut # (Auto) 5.3 th/mm3 (1.8-7.7); Neut % (Auto) 76.6 % (16.0-70.0); Platelet Count 171 th/mm3 (150-450); Red Blood Count 3.81 mil/mm3 (4.00-5.30); Red Cell Distribution Width 15.5 % (11.6-17.2); White Blood Count 6.9 th/mm3 (4.0-11.0)
[2018-06-03 08:37] LABS: Calcium 8.5 mg/dL (8.5-10.1); Carbon Dioxide 24.2 meq/L (21.0-32.0); Potassium 4.7 meq/L (3.5-5.1)
[2018-06-03] MEDS ORDERED: Heparin - SQ 10,000 UNITS/ML Vial SQ ONE (09:00)
[2018-06-03] MEDS: Escitalopram 10 MG Tablet PO SCH (10:05)
[2018-06-03] MEDS: Hydroxychloroquine 200 MG Tablet PO SCH (10:05)
--- NOTE | 2018-06-03 15:39 | MP ---
cc: Esme Maldonado MD, Albert DATE OF OPERATION: 06/02/2018 DATE OF PROCEDURE: 06/02/2016. PREOPERATIVE DIAGNOSES: 1. Large abdominopelvic mass. 2. Abdominal pain. POSTOPERATIVE DIAGNOSIS: 1. Large abdominopelvic mass. 2. Abdominal pain. 3. Extensive intraabdominal and intrapelvic adhesions. 4. Torsion of the right ovarian mass. PROCEDURE PERFORMED: Laparoscopy with extensive lysis of adhesions, robotic-assisted laparoscopic hysterectomy, bilateral salpingo-oophorectomy (with resection of a 24 cm right ovarian mass), bilateral ureterolysis, extensive lysis of adhesions, partial omentectomy. SURGEON: Esme Maldonado MD OPERATING ROOM ORDERLY: Twila accounts receivable assistant. ANESTHESIA: General endotracheal anesthesia. ESTIMATED BLOOD LOSS: 300 mL. IV FLUIDS: 1500 mL. URINE OUTPUT: 150 mL. HISTORY AND INDICATIONS: A 62-year-old female who was recently hospitalized with relatively acute onset of abdominal pain, nausea, vomiting, had an elevated white count, nonacute, but uncomfortable abdominal exam. The imaging showed a complex mass thought to be a probable ovarian origin. No other significant findings. CA-125 was modestly elevated in the 60s. Clinically, she improved and it was felt that urgent surgical intervention was ill advised because she has a significant cardiac history, has a coronary artery stent and requires ongoing anticoagulation. Accordingly, as she clinically improved, her symptoms resolved, she was discharged to home and followed up in the outpatient setting. In the outpatient settings findings were again reviewed. We counseled her regarding surgery. We obtained updated primary care and cardiac evaluation and clearance as well as recommendations for perioperative anticoagulation therapy. Her surgery was rescheduled from Wednesday of this week until today, on , to ensure that there is not excessive lasting effect of her Lovenox anticoagulation. She was seen again in the preop holding area where the findings and plan of care are again reviewed. Questions were asked and answered. She expresses good understanding and would like to move forward with surgery. FINDINGS: Upon entry into the peritoneal cavity, the anatomy cannot initially be clarified. The omentum is draped over the peritoneal contents and adherent in the pelvis. Some of the omentum as well as the descending colon were adherent to the left anterior abdominal wall. There were no obvious peritoneal implants. No ascites. Further dissection confirmed that this mass was encased circumferentially and/or adherent to any adjacent structures. It was fixed from sidewall to sidewall, wedged in the cul-de-sac. The omentum was draped over the anterior surface. Multiple loops of small bowel and the small bowel mesentery, as well as the sigmoid colon and mesentery, were all adherent to this mass and the ureters were adherent to the posterior lateral aspect of the mass bilaterally. Initially the uterus could not be identified and it was felt that this mass was likely ovarian in origin. It took extensive lysis of adhesions before any of the normal anatomy could be recognized for orientation. Eventually it was found that this mass was arising from and replacing the right ovary. It was torsed at what looked like 720 degrees of rotation with markedly edematous gonadal vessels and the mass had an intact capsule, which was filled with old blood primarily, multiloculated cyst. The left tube and ovary and uterus had some inflammatory edematous changes, but otherwise appeared normal. Frozen section analysis showed no evidence of malignancy. STATEMENT OF COMPLEXITY: Complexity of this case was significantly increased due to the extensive adhesions. It is estimated that between 2-1 and 3 hours total of operative time was spent lysing adhesions to gain safe entry into the peritoneal cavity, to mobilize the tissue to help identify structures, to accomplish surgical objectives, and restore normal anatomy. Modifier should be applied accordingly. DESCRIPTION OF PROCEDURE: She was taken to the operating room and placed in the dorsal lithotomy position after general endotracheal anesthesia was administered. A timeout was undertaken where she was identified by site, recognition, and hospital ID bracelet and the proposed procedure was reviewed and confirmed. She was carefully positioned in padded Gerardo stirrups. Her arms were padded and secured to the side. She was further secured to the operating table with egg crate padding and tape in a cross chest over the shoulder fashion. All sites noted to be properly aligned with no malalignment or pressure points. She was prepped in sterile fashion and draped below the waist, placed in high lithotomy position. The cervix was grasped. The uterine cavity was sounded. Large VCare manipulator inserted and secured in the usual fashion. Tinajero catheter placed in the bladder. She returned to low lithotomy position and a change of sterile gloves was undertaken. We completed draping in anticipation of laparoscopy and confirmed that an orogastric tube was in the stomach on suction. With manual elevation of the abdominal wall, under direct laparoscopic visualization, a 5 mm cannula was placed in the left upper quadrant and carbon dioxide gas was insufflated and an atraumatic entry was confirmed. An 8 mm cannula was placed in the right upper quadrant and a blunt grasper was used to mobilize some of the adhesions to start taking down the omentum. I did try to get better visualization of the anatomy. A 12 mm cannula was placed in the midline above the umbilicus and blunt and sharp dissection were used to take down the omentum further to free the bowel from its attachments to the left anterior abdominal wall and to start adhesiolysis. This dissection was continued along the left aspect of the mass. It allowed a window into the cul-de-sac where now, a normal left tube and ovary could be visualized and the fundus of the uterus could be visualized, which favored this being a right ovarian mass. She was placed in steep Trendelenburg position, which she tolerated from an anesthesia standpoint. Peritoneal washings were obtained for cytology. The small bowel was folded back on its mesenteric root to the extent possible and 3 Ray-Duane sponges were placed in the peritoneal cavity. The robotic system was brought into the operative field and attached in the usual fashion. Monopolar scissors, fenestrated bipolar forceps, and ProGrasp manipulators were placed in arms #1, 2, and 3 respectively and then took my place at the surgeon's console. Blunt and sharp dissection were continued on the central portion of the mass, freeing loops of small bowel and its mesentery, freeing the colon and its mesentery from this portion of the mass. Dissection was carried around the right side where similarly, adhesions were taken down with blunt and sharp dissection. There was an area of omentum that was so densely adherent to the mass it was felt better to transect the omentum and this area of the omentum was isolated and vascular portions were isolated, cauterized, and transected in a stepwise fashion, performing a partial omentectomy, leaving this portion of the omentum adherent to the mass. Dissection was continued between the mass and the uterus to separate this space and to dissect the adhesions down toward the cul-de-sac. Continue the dissection on the left and right side of the mass. Starting on the left side, the retroperitoneal dissection was continued. The left ureter was identified. It was adherent to the lateral aspect of the mass and with sharp dissection and medial retraction of the mass wall, the ureter was dissected free along its course in the pelvis until it could be pushed aside or retracted laterally and was free along the wall of the mass. At this part of the dissection a defect was encountered in the wall of the mass and old bloody fluid was removed and it was suctioned which reduced the size of the mass. Attention was directed toward the right side where the retroperitoneal dissection was carried out. The round ligament was isolated, cauterized, and transected. The right ureter was identified. It was clearly adherent to the mass and so with sharp dissection and blunt dissection and countertraction the ureter was freed along its course in the pelvis, the ureter from this mass until it could be retracted laterally. Dissection was continued posteriorly as the mass wall was elevated. Sharp dissection was used and blunt dissection was used to free additional adhesions and to free it from the bowel and mesentery and this was continued circumferentially until the mass could be elevated, attached now only to the residual right utero-ovarian ligament. The right utero-ovarian ligament was now cauterized and transected. A large right ovarian mass was removed and placed in the pericolic gutter for later retrieval. The left round ligament was cauterized and transected. The anterior and posterior leaves of the broad ligament were further dissected. The posterior peritoneum was opened along the left side of the uterus and cervix and the left ureter was again identified. The left infundibulopelvic ligament was isolated to the level of the pelvic brim where it was cauterized and transected. The vesicouterine peritoneum was dissected off the lower uterine segment and cervix on the right and left side. Some adhesions were encountered, which were taken down with sharp dissection. The uterine vessels were skeletonized bilaterally. The right uterine vessels were cauterized and transected as were the cardinal, paracervical, and uterosacral ligaments. Thereby freeing the attachments along the right side of the uterus and cervix. Attention was directed toward the left side where similarly, the left uterine vessels were skeletonized, cauterized, and transected, as was the cardinal, paracervical, and uterosacral ligaments. Thereby freeing the attachments along the left side of the uterus and cervix. A circumferential colpotomy was performed and the specimen was withdrawn transvaginally, which included uterus, cervix and the attached normal appearing left tube and ovary. Next, a pneumo-occluder balloon was placed in the vagina to maintain pneumoperitoneum and a 15 cm EndoCatch bag was introduced transvaginally into which the right ovarian mass was placed. The bag was closed. It was brought out through the vagina and with counter traction and repositioning manipulation, the specimen was able to be removed transvaginally and the pneumo-occluder balloon was placed again. The specimen, which was the large right ovarian mass and omentum, were placed in the 15 cm EndoCatch bag and the specimen was brought out through the vagina. Instruments 1 and 3 exchanged for needle drivers as an 0 Vicryl suture was introduced. The vaginal cuff was closed starting at the left corner full-thickness closure incorporating the uterosacral ligament, posterior peritoneum and was tied via instrument tie. The closure was held on countertraction as a running continuous full-thickness closure was carried across the vaginal cuff to the midway point where it was tied. The needle was cut and removed and a second 0 Vicryl suture was brought in. Closure was started at the right vaginal cuff for a full-thickness closure, incorporating the uterosacral ligament and posterior peritoneum were included, sutures were tied and countertraction running continuous closure was carried toward the midline where this was tied securely. The needle was cut and removed. Pelvis and abdomen were thoroughly irrigated. Small bleeders rendered hemostatic with bipolar cautery. There was a very wide surface area of raw surfaces on the anterior abdominal wall to and above the level of the umbilicus, extending laterally to the anterior and lateral abdominal wall and posteriorly along the face of the bowel mesentery and posterior cul-de-sac. Hemostatic Tisseel was sprayed across all of the raw surfaces as described to help assist in continued hemostasis. Frozen section came back showing no evidence of malignancy. Therefore, it was felt that all reasonable surgical objectives had been completed. The robotic instruments were removed. The robotic system was disengaged from the operative field and I reentered the bedside under sterile condition. Each of the 3 Ray-Duane sponges that were placed in the peritoneal cavity were now removed. Each were removed individually and inspected and noted to be removed in their entirety. Visual inspection confirmed no remaining foreign objects in the peritoneal cavity and preliminary counts were correct. The 12 mm fascial defect was closed with interrupted 0 Vicryl sutures using a fascia closure needle apparatus, the sutures were tied securely which rendered the fascia completely airtight and hemostatic. The remaining cannulas were withdrawn. Carbon dioxide gas was removed from the peritoneal cavity, 3-0 Vicryl subcutaneous, 3-0 Vicryl subcuticular was used to close these incisions followed by Steri-Strips. She was returned to dorsal lithotomy position. Pelvic exam confirmed the vaginal cuff was well supported and was hemostatic. There were no vaginal lacerations. There were no remaining foreign objects in the vagina. Final counts were correct. She was returned to dorsal supine position and was pending reversal of anesthesia when I left the operating room to precede her to the postanesthesia care unit. MD BRUCE Youssef/ , 02:13 PM , 03:14 PM
--- NOTE | 2018-06-03 15:54 | P.PN ---
Subjective Interval history: Not yet stable on her feet, has not yet been able to ambulate to bathroom unassisted Physical Exam Vital signs: Vital Signs 06/02/18 20:00 06/02/18 20:31 06/03/18 00:00 Temperature 97.7 F 98.6 F Pulse Rate 82 75 Respiratory Rate 16 16 Blood Pressure 133/89 138/90 Pulse Oximetry 94 L 96 92 L 06/03/18 01:07 06/03/18 01:08 06/03/18 04:00 Temperature 98.7 F Pulse Rate 74 Respiratory Rate 16 16 16 Blood Pressure 131/89 Pulse Oximetry 94 L 06/03/18 09:50 06/03/18 12:35 Temperature 98.9 F 98.6 F Pulse Rate 68 66 Respiratory Rate 18 16 Blood Pressure 105/72 128/81 Pulse Oximetry 94 L 93 L Intake & Output 06/02/18 06/03/18 06/03/18 18:59 06:59 18:59 Intake Total 1999 / 1999 1240 / 1240 Output Total 800 / 800 600 / 600 750 / 750 Balance 1200 / 1200 640 / 640 -750 / -750 Weight 89.7 kg Intake: IV 200 / 200 1000 / 1000 D5W/1/2NS + KCL 20 mEq Inj 1, 1000 / 1000 000 ML @ 100 mls/hr IV.CONT . Q10H [facility] Rx#:[id number] Levaquin 500 mg Premix Inj 500 100 / 100 mg In 100 ml @ 100 mls/hr IV. SIG FIELD ADJUSTER PRN Rx#:[id number] Flagyl 500 MG Inj 100 ML @ 100 100 / 100 mls/hr IV.SIG FIELD ADJUSTER PRN Rx#: [id number] Oral 240 / 240 Anesthesia Amount 1800 / 1800 Output: Urine 600 / 600 750 / 750 Estimated Blood Loss 300 / 300 Urine Amount (Catheter) 500 / 500 Indwelling Urethral Catheter 500 / 500 - Constitutional no acute distress - Urinary Catheter Management Indwelling Urethral Catheter Cath placed during this visit: yes, but has since been removed by the nurse Reason for continuing: Decision to DC catheter Removal date: 06/03/18 Removal time: 05:30 Results - Labs CBC & Chem 7: 06/03/18 07:41 06/03/18 07:41 Laboratory Results - last 24 hr 06/03/18 06/03/18 07:41 07:41 WBC 6.9 RBC 3.81 L Hgb 10.3 L Hct 31.0 L MCV 81.3 MCH 27.1 MCHC 33.4 RDW 15.5 Plt Count 171 D MPV 7.7 Neut % (Auto) 76.6 H Lymph % (Auto) 8.6 L Hickman % (Auto) 14.3 H Eos % (Auto) 0.3 Baso % (Auto) 0.2 Neut # (Auto) 5.3 Lymph # (Auto) 0.6 L Hickman # (Auto) 1.0 H Eos # (Auto) 0.0 Baso # (Auto) 0.0 WBC Differential . Differential Comment Auto diff final Sodium 137 Potassium 4.7 Chloride 106 Carbon Dioxide 24.2 Anion Gap 7 BUN 10 Creatinine 0.98 Estimated GFR 57 L Random Glucose 124 H Calcium 8.5 Assessment and Plan - Assessment (1) Abdominal or pelvic swelling, mass, or lump, right lower quadrant Code(s): R19.03 - Right lower quadrant abdominal swelling, mass and lump Status: Acute - Plan POD#1 findings, steps taken, pathology reviewed q&a, hold d/c until tomorrow
[2018-06-03] MEDS: Heparin - SQ 10,000 UNITS/ML Vial SQ SCH (21:50)
[2018-06-03] MEDS: KCL 20 mEq/D5W/NaCl 0.45% Inj 1,000 ML IV.CONT SCH ×2 (21:53)
[2018-06-03] MEDS: Allopurinol 100 MG Tablet PO SCH (23:33)
[2018-06-04 04:03] VITALS: BP 131/88
[2018-06-04] MEDS: Ketorolac Inj 30 MG/ML (IVP) Vial IV.PUSH SCH ×2 (04:05→09:57)
[2018-06-04 04:31] VITALS: O2SAT 92
[2018-06-04 05:42] VITALS: RESP 16
[2018-06-04 09:44] VITALS: PULSE 67; TEMP 97.9
[2018-06-04] MEDS: Escitalopram 10 MG Tablet PO SCH (09:57)
[2018-06-04] MEDS: Hydroxychloroquine 200 MG Tablet PO SCH (09:58)
[2018-06-04] MEDS: KCL 20 mEq/D5W/NaCl 0.45% Inj 1,000 ML IV.CONT SCH (12:29)
[2018-06-04] MEDS: Heparin - SQ 10,000 UNITS/ML Vial SQ SCH (12:30)
[2018-06-04] MEDS: Allopurinol 100 MG Tablet PO SCH (12:30)
--- NOTE | 2018-06-04 14:11 | MD ---
cc: Esme Maldonado MD, Albert MD J DATE OF DISCHARGE: 06/04/2018 PROCEDURE: 06/02/2018, robotic-assisted laparoscopic resection of large pelvic mass, extensive lysis of adhesions with the hysterectomy, bilateral salpingo-oophorectomy (which include resection of 24 cm right ovarian mass) partial omentectomy. HOSPITAL COURSE: She did well in her early postop period, but at 24-hour debo she was still a bit unsteady on her feet, not yet able to ambulate back and forth to the bathroom unassisted. Minimal oral intake. She was seen yesterday on rounds again in the afternoon and it was felt that it was a bit premature to send her home yesterday and medically necessary to watch her overnight. Overnight, she has improved and her oral intake has improved. She is feeling more steady on her feet, feeling now as she has improved and ready for discharge to home. LABORATORY DATA: Ins and outs: 1240/1350. No new labs. O2 saturations between 92% and 94%, which are consistent with her baseline and are unchanged. PHYSICAL EXAMINATION: VITAL SIGNS: She is afebrile, respirations 16-18, blood pressure 131-135/86-88. She is alert and oriented x3. LUNGS: Respirations are unlabored. No acute distress. Lungs are clear and mild basilar rales. CARDIOVASCULAR: Regular rate and rhythm. ABDOMEN: Soft. Incisions clean and dry. GYNECOLOGIC: No bleeding. EXTREMITIES: Nontender. ASSESSMENT: Postoperative day number 2, improved. Findings at the time of surgery, the steps were taken and the preliminary pathology were discussed. Activities and restrictions are reviewed. Questions were asked and answered. She expressed good understanding. PLAN: Anticipate she will meet criteria for discharge to home today. She is to contact our office to schedule a followup in approximately 2 weeks. She is to resume her prior medications including she can restart her Coumadin dose this evening. She will be given a prescription for Percocet for pain. Our office number is again made available should she have any questions or problems between now and the time of scheduled followup. MD BRUCE Youssef/savannah , 07:28 AM , 07:35 AM
== END 2018-06-04 13:52 | disposition home or self-care (01) ==
LOC: HSDI 05:23 → HSDC 05:23 → HCIN 15:37
PROVIDERS: ADMIT Obstetrics & Gynecology Gynecologic Oncology; ATTEND Obstetrics & Gynecology Gynecologic Oncology